=== PATIENT | male | born 1980 | race African-American/Black ===

== ENCOUNTER 2024-03-13 11:31 | Inpatient (IN) | payer OTHER ==
[2024-03-13 12:00] VITALS: BMI 29.9
[2024-03-13] MEDS ORDERED: ALBUTEROL SO4 2.5/IPRATROPIUM 0.5 INH SOL 3 ML VIAL.NEB. NEB ONE (12:13)
[2024-03-13] MEDS: ALBUTEROL SO4 2.5/IPRATROPIUM 0.5 INH SOL 3 ML VIAL.NEB. NEB ONE (12:19)
[2024-03-13 12:52] LABS: VENOUS BASE EXCESS 3.4 mmol/L (-2-2); VENOUS O2 SATURATION 86.5 % (70-80); VENOUS PCO2 60.3 mmHg (38-52); VENOUS PH 7.33 (7.310-7.410)
[2024-03-13 12:54] LABS: BASO % 0.8 % (0-2.0); EOS % 2.2 % (0-4.5); HEMATOCRIT 38.5 % (35.4-49); HEMOGLOBIN 12.9 GM/dL (11.7-16.9); LYMPH % 46.3 % (8-40); MCH 29.8 pg (25.7-33.7); MCHC 33.4 g/dl (32.0-35.9); MEAN CELL VOLUME 89.2 fl (80-96); MEAN PLT VOLUME 7.1 fl (7.5-11.1); MONO % 13.4 % (3.8-10.2); NEUT % 37.3 % (42.8-82.8); PLATELET COUNT 219 10^3/uL (134-434); RBC 4.32 M/mm3 (4.00-5.60); RDW 12.9 % (11.9-15.9); WHITE BLOOD COUNT 5.6 K/mm3 (4.0-10.0)
[2024-03-13 13:09] LABS: POTASSIUM 4.3 mmol/L (3.5-5.1)
[2024-03-13 13:13] LABS: ALBUMIN 3.6 g/dl (3.4-5.0); BLOOD UREA NITROGEN 11.7 mg/dL (7-18); CALCIUM 9.1 mg/dL (8.5-10.1)
[2024-03-13 13:15] LABS: CREATININE 0.8 mg/dL (0.55-1.3)
[2024-03-13 13:17] LABS: BILIRUBIN,TOTAL 0.5 mg/dL (0.2-1); TOT PROT 6.9 g/dl (6.4-8.2)
[2024-03-13 13:18] LABS: N-TERMINAL BNP 44.4 pg/ml (5-125)
[2024-03-13] MEDS ORDERED: MAGNESIUM SULFATE IN WATER 2 GM/50 ML IVPB IVPB ONE (13:54)
[2024-03-13] MEDS ORDERED: methylPREDNISolone NA SUCC 125 MG/2 ML VIAL ONE (13:54)
[2024-03-13] MEDS: methylPREDNISolone NA SUCC 125 MG/2 ML VIAL IVPUSH ONE (14:04)
[2024-03-13] MEDS: MAGNESIUM SULF 50% (8.12 MEQ/2 ML-1 GM VIAL) IVPB ONE (14:04)
[2024-03-13 16:19] LABS: VENOUS BASE EXCESS 4.4 mmol/L (-2-2); VENOUS O2 SATURATION 87.2 % (70-80); VENOUS PCO2 62.2 mmHg (38-52); VENOUS PH 7.332 (7.310-7.410)
[2024-03-13] MEDS ORDERED: AZITHROMYCIN IVPB 500 MG/250 ML BAG IVPB ONE (16:44)
[2024-03-13] MEDS: AZITHROMYCIN IVPB 500 MG in DEXTROSE 5%-WATER - 250 ML IVPB ONE (16:57)
[2024-03-13 17:49] LABS: ARTERIAL BLD GAS O2 SATURATION 96.1 % (95-98); ARTERIAL BLOOD GAS PO2 89.4 mmHg (80-100); ARTERIAL BLOOD GAS pH 7.337 (7.350-7.450)
[2024-03-13 17:50] LABS: ALLENS TEST POSITIVE; VENT MODE BIPAP
[2024-03-13 17:51] LABS: VENT RATE 12
[2024-03-13] MEDS: ALBUTEROL SO4 2.5/IPRATROPIUM 0.5 INH SOL 3 ML VIAL.NEB. NEB SCH (20:27)
[2024-03-14 06:27] VITALS: RESP 18
[2024-03-14 08:54] LABS: BASO % 0.3 % (0-2.0); EOS % 0.3 % (0-4.5); HEMATOCRIT 39.2 % (35.4-49); HEMOGLOBIN 12.7 GM/dL (11.7-16.9); LYMPH % 30.2 % (8-40); MCH 29.5 pg (25.7-33.7); MCHC 32.3 g/dl (32.0-35.9); MEAN CELL VOLUME 91.3 fl (80-96); MEAN PLT VOLUME 7.1 fl (7.5-11.1); MONO % 9.1 % (3.8-10.2); NEUT % 60.1 % (42.8-82.8); PLATELET COUNT 247 10^3/uL (134-434); RBC 4.29 M/mm3 (4.00-5.60); RDW 12.6 % (11.9-15.9); WHITE BLOOD COUNT 6.2 K/mm3 (4.0-10.0)
[2024-03-14 09:21] LABS: POTASSIUM 4.3 mmol/L (3.5-5.1)
[2024-03-14 09:25] LABS: CALCIUM 9.2 mg/dL (8.5-10.1)
[2024-03-14 09:26] LABS: BLOOD UREA NITROGEN 7.7 mg/dL (7-18)
[2024-03-14 09:30] LABS: CREATININE 0.7 mg/dL (0.55-1.3)
[2024-03-14] MEDS ORDERED: methylPREDNISolone NA SUCC 40 MG/1 ML VIAL IVPUSH SCH (10:00)
[2024-03-14] MEDS ORDERED: predniSONE 20 MG TABLET (UD) PO SCH ×2 (10:00)
[2024-03-14] MEDS: predniSONE 40 MG, predniSONE 10 MG PO SCH (11:09)
[2024-03-14] MEDS: LORATADINE 10 MG TABLET PO SCH (11:09)
[2024-03-14] MEDS: guaiFENesin/D-METHORPHAN HB 10 ML UNIT-DOSE CUPS PO PRN (11:09)
[2024-03-14] MEDS: FLUTICASONE PROP 0.05% 16 GM NASAL SPRAY NS SCH (11:34)
[2024-03-14] MEDS: AZITHROMYCIN IVPB 250 MG in DEXTROSE 5%-WATER - 250 ML IVPB SCH (11:35)
[2024-03-14] MEDS: FLUTICASONE/UMECLIDIN/VILANTER(100-62.5-25 TRELEGY ELLIPTA) INAHLER IH SCH (14:57)
[2024-03-15] MEDS: NICOTINE 14 MG/24 HOURS TOPICAL PATCH TD SCH (09:47)
[2024-03-15 10:12] LABS: BASO % 0.5 % (0-2.0); EOS % 0.6 % (0-4.5); HEMATOCRIT 38.8 % (35.4-49); HEMOGLOBIN 12.5 GM/dL (11.7-16.9); LYMPH % 47.8 % (8-40); MCH 29.3 pg (25.7-33.7); MCHC 32.2 g/dl (32.0-35.9); MEAN PLT VOLUME 7.3 fl (7.5-11.1); MONO % 9.3 % (3.8-10.2); NEUT % 41.8 % (42.8-82.8); PLATELET COUNT 264 10^3/uL (134-434); RBC 4.27 M/mm3 (4.00-5.60); RDW 12.8 % (11.9-15.9); WHITE BLOOD COUNT 7.5 K/mm3 (4.0-10.0)
[2024-03-15 10:27] LABS: POTASSIUM 3.7 mmol/L (3.5-5.1)
[2024-03-15 10:30] LABS: ALBUMIN 3.2 g/dl (3.4-5.0); BLOOD UREA NITROGEN 14.6 mg/dL (7-18); CALCIUM 8.9 mg/dL (8.5-10.1); MAGNESIUM 2.3 mg/dL (1.8-2.4)
[2024-03-15 10:33] LABS: CREATININE 0.8 mg/dL (0.55-1.3)
[2024-03-15 10:34] LABS: PHOSPHOROUS 3.2 mg/dL (2.5-4.9)
[2024-03-15 10:35] LABS: BILIRUBIN,TOTAL 0.6 mg/dL (0.2-1); TOT PROT 6.3 g/dl (6.4-8.2)
[2024-03-15 12:08] LABS: OPIATES, URI NEGATIVE (NEGATIVE); PHENCYCLIDINE,URINE NEGATIVE (NEGATIVE)
[2024-03-15 12:09] LABS: METHADONE, UR NEGATIVE (NEGATIVE); URINE AMPHETAMINES NEGATIVE (NEGATIVE); URINE BARBITURATES NEGATIVE (NEGATIVE)
[2024-03-15 12:10] LABS: COCAINE, UR NEGATIVE (NEGATIVE); URINE BENZODIAZEPINES NEGATIVE (NEGATIVE)
[2024-03-15] MEDS: amLODIPine BESYLATE 5 MG TABLET (FP) PO SCH (16:17)
[2024-03-16 06:26] VITALS: BP 132/92; TEMP 97.3
[2024-03-16] MEDS ORDERED: ALBUTEROL SO4 0.083% IH SOL 2.5 MG/3 ML VIAL.NEB. NEB PRN (07:52)
[2024-03-16 08:02] VITALS: PULSE 61
[2024-03-16] MEDS: methylPREDNISolone NA SUCC 40 MG/1 ML VIAL IVPUSH SCH (13:21)
== END 2024-03-16 13:00 | disposition home or self-care (01) | DRG 141 ==
LOC: JER 11:31 → JERBED 17:54 → OBSVTOIN 17:54 → J6W 20:23
PROVIDERS: ADMIT Internal Medicine
DX: J45.901 Unspecified asthma with (acute) exacerbation (principal); J96.22 Acute and chronic respiratory failure with hypercapnia; F25.9 Schizoaffective disorder, unspecified; F17.200 Nicotine dependence, unspecified, uncomplicated; E66.9 Obesity, unspecified; Z68.30 Body mass index [BMI] 30.0-30.9, adult
CPT/HCPCS: 0241U-QW; 36415; 36600; 71045-TC-FY; 80048; 80053; 80307; 82803; 83735; 83880; 84100; 84484; 85025; 93005; 93010; 94640; 94660; 94761; 99285-25